=== PATIENT | male | born 1965 | race Two or more races ===

== ENCOUNTER 2024-06-20 01:57 | Emergency (ER) | payer OTHER ==
[2024-06-20 02:03] VITALS: BP 146/87; PULSE 82; RESP 20; TEMP 98.8; BMI 41.3
[2024-06-20] MEDS ORDERED: ACETAMINOPHEN 325 MG TABLET (FP) ONE (03:20)
[2024-06-20] MEDS: ACETAMINOPHEN 500 MG TABLET (FP) PO ONE (03:26)
== END 2024-06-20 05:09 | disposition home or self-care (01) ==
LOC: JER 01:57
DX: R05.9 Cough, unspecified (principal); R51.9 Headache, unspecified; R09.81 Nasal congestion; J10.1 Influenza due to other identified influenza virus with other respiratory manifestations; Z20.822 Contact with and (suspected) exposure to COVID-19
CPT/HCPCS: 0241U-QW; 71046-TC-FY; 99284-25